=== PATIENT | male | born 1960 | race Caucasian/White ===

== ENCOUNTER 2023-10-20 10:48 | Emergency (ER) | payer OTHER, SELFPAY ==
[2023-10-20 11:08] VITALS: BP 152/88
[2023-10-20 11:39] LABS: % Basophils 0.3 % (0-2); % Eosinophils 0.2 % (0-6); % Immature Granulocytes 0.4 % (0-0.5); % Lymphocytes 19.5 % (20.5-51.1); % Monocytes 5.4 % (1.7-9.3); % Neutrophils 74.2 % (42.2-75.2); Absolute Basophils 0.1 10^3/uL (0-0.2); Absolute Immature Granulocytes 0.1 10^3/uL (0-0.05); Absolute Lymphocytes 3.1 10^3/uL (1.2-3.4); Absolute Monocytes 0.9 10^3/uL (0.1-0.6); Absolute Neutrophils 11.9 10^3/uL (1.4-6.5); Hematocrit 43.3 % (39.0-52.0); Hemoglobin 15.1 g/dL (13.0-18.0); Mean Corp Hgb Conc. 34.9 g/dL (33.0-37.0); Mean Corpuscular Hgb 31.5 pg (27.0-31.0); Mean Corpuscular Volume 90.4 fL (80.0-94.0); Mean Platelet Volume 9.6 fL (7.4-10.4); Nucleated Red Blood Cells % 0 % (-); Platelet Count 294 10^3/uL (130-400); Red Blood Cell Count 4.79 10^6/uL (4.70-6.10); Red Cell Dist. Width 12.1 % (11.5-14.5); White Blood Cell Count 16.1 10^3/uL (4.8-10.8)
[2023-10-20 12:17] LABS: ALT (SGPT) 17 U/L (0-50); AST (SGOT) 27 U/L (17-59); Albumin 4.6 g/dl (3.5-5.0); Alkaline Phosphatase 67 U/L (38-126); Blood Urea Nitrogen 14 mg/dl (9-20); Calcium 9.5 mg/dl (8.4-10.2); Carbon Dioxide 25 mmol/L (22-30); Chloride 103 mmol/L (98-107); Glucose 111 mg/dl (70-99); Potassium 3.8 mmol/L (3.5-5.1); Sodium 136 mmol/L (135-145); Total Bilirubin 1.3 mg/dl (0.2-1.3); Total Protein 7.3 g/dl (6.3-8.2); eGFR > 60.00
[2023-10-20] MEDS: TORADOL 15 MG IV (12:30)
--- NOTE | 2023-10-20 12:33 | ED.GENMED ---
History of Present Illness
General
Chief Complaint: Dental Problem
Time Seen by Provider: 10/20/23 11:20
Travel History
Have you had any contact with someone who has COVID-19?: No
Do you have any symptoms of coronavirus? Fever > 100 degrees, chills, cough, shortness of breath, sore throat, loss of taste or smell, muscle aches, or headache?: No
History of Present Illness
History of Present Illness:
63-year-old male presents to the emergency department for evaluation of left upper dental pain and swelling ongoing for the past 2 to 3 days. He saw his dentist this morning who took x-rays that showed an abscess adjacent to tooth 14 and 15, was
referred to the emergency department for IV antibiotics and further imaging. The patient denies any fevers but does not feel well overall, reports mild chills. Denies any neck pain or vision changes.
Past History
Past History
ED Past Medical History: None
Social History
Tobacco: Non-smoker
Alcohol: Occasional
Personal:
Review of Systems
Review of Systems
Allergies reviewed?: Yes
All Other Systems: ROS reviewed and negative except as documented in HPI and ROS
Phy Exam
Physical Exam
Physical Exam:
GEN: Well appearing, NAD, WDWN
HEENT: Oral mucosa moist, no scleral icterus. Erythema and tenderness to the left upper gingival mucosa. There is moderate swelling to the left maxillary face with exquisite tenderness. No trismus, no periorbital edema
Cardiac: Regular rate
Lung: No respiratory distress, no tachypnea
MSK: No gross deformity or injuries
Skin: Good color, no pallor or jaundice, no rashes
Neuro: AO x3, moves all extremities freely
Psych: Calm, cooperative
Course
Orders/Labs/Results
Orders:
Orders
10/20/23 11:26
Complete Blood Count/With Diff Urgent
Comprehensive Metabolic Panel Urgent
10/20/23 11:58
CT Facial Bones W/ Iv Contrast Urgent
Comment:
Reason For Exam: dental abscess
10/20/23 12:16
Ketorolac [Toradol] 15 mg IV NOW STA
10/20/23 12:28
Clindamycin Phosphate [Cleocin] 300 mg 0.9% Sodium Chloride [Nss] 50 ml IV NOW
Abnormal Lab Results
10/20/23
11:26
WBC 16.1 H 10^3/uL
(4.8-10.8)
MCH 31.5 H pg
(27.0-31.0)
Abs Immat Gran (auto) 0.1 H 10^3/uL
(0-0.05)
Absolute Neuts (auto) 11.9 H 10^3/uL
(1.4-6.5)
Absolute Monos (auto) 0.9 H 10^3/uL
(0.1-0.6)
Lymphocytes % 19.5 L %
(20.5-51.1)
Glucose 111 H mg/dl
(70-99)
10/20/23 11:26
10/20/23 11:26
Vital Signs
Initial and Last Documented VS:
Initial Vital Signs
Temp Pulse Resp BP Pulse Ox
99.2 F 73 18 152/88 99
10/20/23 11:08 10/20/23 11:08 10/20/23 11:08 10/20/23 11:08 10/20/23 11:08
Last Documented Vital Signs
Temp Pulse Resp BP Pulse Ox
99.2 F 74 18 146/70 99
10/20/23 11:08 10/20/23 13:52 10/20/23 13:52 10/20/23 13:52 10/20/23 13:52
MDM/Problems Addressed
MDM/Problems Addressed:
Patient does have leukocytosis however CT shows no clear evidence for drainable abscess. He is given IV antibiotics, was prescribed clindamycin already by his dentist and will continue this. He was referred by his dentist and outpatient root canal
specialist for further intervention.
*Critical Care Note
Total Time (30-74mins, 75-104mins- exclusive of procedures): Not Applicable
ED Attending Note
-
Portions of this chart may have been created with voice recognition software.� Occasional wrong word or��sound alike� substitutions may have occurred due to the inherent limitations of voice recognition software.
Discharge Plan
Departure
Patient Disposition: Home (Routine Discharge)
Date of Disposition: 10/20/23
Time of Disposition: 14:07
Patient with high blood pressure during this ER visit?: No
Discharge Problem:
Abscess, dental
Instructions: Tooth Abscess (DC)
Prescriptions:
New
diclofenac sodium 50 mg tablet,delayed release (DR/EC)
50 mg PO TID PRN (Reason: Pain) Qty: 15 0RF
Referrals:
Kiki Gold CRNP [Family Provider] -
Activity Restrictions/Additional Instructions:
Take antibiotics as prescribed by your dentist
See your primary dentist or the root canal specialist next week
Interventions
Interventions:
*Risk Screen - Suicide Last Done: 10/20/23 11:33
*General Assessment Last Done: 10/20/23 11:33
*Neglect/Abuse Screening Last Done: 10/20/23 11:33
ED- Fall Risk Assessment Last Done: 10/20/23 11:33
*ED COVID-19 Vaccine History Last Done: 10/20/23 11:33
*Nursing Disposition Last Done: 10/20/23 14:10
Discharge Date and Time
Discharge Date/Time: 10/20/23 14:25
[2023-10-20] MEDS: CLEOCIN 52 MG IV (12:47)
[2023-10-20 13:52] VITALS: BP 146/70
== END 2023-10-20 14:25 | disposition home or self-care (01) ==
LOC: EMR 10:48
PROVIDERS: EMERGENCY PHYSICIAN Emergency Medicine; FAMILY PHYSICIAN Nurse Practitioner Adult Health
DX: K04.7 Periapical abscess without sinus (principal)
CPT/HCPCS: 99284; 96365; 96375; 70487; 80053; 85025; Q9967